=== PATIENT | male | born 1995 | race Caucasian/White ===

== ENCOUNTER 2020-03-07 13:28 | Emergency (ER) | payer OTHER ==
[2020-03-07 14:09] LABS: Absolute Lymphocytes (CBC) 1.6 K/uL (0.7-4.9); Basophils % 1.3 % (0-1.3); Lymphocytes % 27.2 % (15.3-44.8); MPV 8.2 fL (7.6-11.3); RBC Red Blood Cell Count 5.16 M/uL (4.33-5.43)
[2020-03-07] MEDS ORDERED: MECLIZINE HCL 12.5 MG TAB ONE (14:13)
[2020-03-07] MEDS ORDERED: NA CHLORIDE 0.9% 1,000 ML ONE (14:13)
[2020-03-07 14:17] LABS: Protime INR 1.02
--- NOTE | 2020-03-07 14:29 | RAD REPORT ---
EXAM DESCRIPTION: RAD - Chest Single View - 03/07/2020 2:09 pm CLINICAL HISTORY: Dizziness COMPARISON: None TECHNIQUE: AP portable chest image was obtained 03/07/2020 2:09 pm . FINDINGS: Lungs are clear. Heart and vasculature are normal. No measurable pleural effusion and no p neumothorax. No acute bony abnormality seen. No acute aortic findings suspected. IMPRESSION: No acute cardiopulmonary process.
--- NOTE | 2020-03-07 14:31 | RAD REPORT ---
EXAM DESCRIPTION: CT - Head Brain Wo Cont - 03/07/2020 2:18 pm CLINICAL HISTORY: DIZZINESS, near syncope COMPARISON: No comparisons TECHNIQUE: Axial 5 mm thick images of the head were obtained without IV contrast. All CT scans are performed using dose optimization technique as appropriate and may include automated exposure control or mA/KV adjustment according to patient size. FINDINGS: No intracranial hemorrhage, mass, edema or shift of mid-line structures. No acute infarcti on changes seen. No abnormal extra-axial fluid collections. Ventricles are normal. Mastoid air cells are clear. Scattered mucosal thickening seen in the paranasal sinuses. Air-fluid le vels evident in the right maxillary sinus. No acute bony findings. IMPRESSION: No intracranial abnormality identifiable. Paranasal sinus mucosal thickening with additional air-fluid level right maxillary sinus.
[2020-03-07 14:36] LABS: ALT/SGPT 38 U/L (12-78); AST/SGOT 17 U/L (15-37); Albumin 3.6 g/dL (3.4-5.0); Alkaline Phosphatase 80 U/L (45-117); BUN Blood Urea Nitrogen 12 mg/dL (7-18); Bicarbonate 25 mmol/L (21-32); Bilirubin Direct 0.1 mg/dL (0-0.2); Bilirubin Total 0.3 mg/dL (0.2-1.0); Glucose Level 166 mg/dL (74-106); NT PRO-BNP 21 pg/mL (<125); Potassium 3.9 mmol/L (3.5-5.1); Protein, Total 6.8 g/dL (6.4-8.2); Sodium Level 139 mmol/L (136-145); Troponin (Emerg Dept Use Only) < 0.02 ng/mL (0.0-0.045)
--- NOTE | 2020-03-07 15:34 | ER ---
Nurse's Notes [facility] Name: Sylvester Lund Age: 25 yrs Sex: Male : 1995 Arrival Date: 03/07/2020 Time: 13:34 Bed 16 Private MD: Diagnosis: Benign paroxysmal vertigo Presentation: 03/07 13:43 Chief complaint: Patient states: Sudden onset of feeling weird, dizzy, shaky today ll1 while standing at work. Slight nausea at the time. Left work to be checked. Gait steady. No pain or fever. Coronavirus screen: Proceed with normal triage. Patient denies a cough. Patient denies shortness of breath or difficulty breathing. Patient denies measured and/or subjective temperature greater than 100.4F prior to today's visit. Patient denies travel on a cruise ship or to a country the [facility] currently lists as an affected area. Patient denies contact with known and/or suspected case of COVID-19. Ebola Screen: Patient denies travel to an Ebola-affected area in the 21 days before illness onset. Initial Sepsis Screen: Does the patient meet any 2 criteria? No. Patient's initial sepsis screen is negative. Does the patient have a suspected source of infection? No. Patient's initial sepsis screen is negative. Risk Assessment: Do you want to hurt yourself or someone else? Patient reports no desire to harm self or others. Onset of symptoms was March 07, 2020. 13:43 Method Of Arrival: Ambulatory ll1 13:43 Acuity: JOÃO 3 ll1 Historical: - Allergies: 13:45 No Known Allergies; ll1 - PMHx: 13:45 borderline diabetes-no meds; ll1 - PSHx: 13:45 None; ll1 - Social history:: Smoking status: Patient denies any tobacco usage or history of. Patient/guardian denies using alcohol, street drugs, tobacco products. Screenin:05 Abuse screen: Denies threats or abuse. Nutritional screening: No deficits noted. aa5 Tuberculosis screening: No symptoms or risk factors identified. Fall Risk None identified. Assessment: 13:55 General: Appears comfortable, Behavior is calm, cooperative. Pain: Denies pain. Neuro: aa5 Level of Consciousness is awake, alert, obeys commands, Oriented to person, place, time, situation, Parts Data Writer are equal bilaterally Moves all extremities. Speech is normal, Facial symmetry appears normal, Pupils are PERRLA, Reports dizziness. Cardiovascular: Patient's skin is warm and dry. Respiratory: Airway is patent Respiratory effort is even, unlabored, Respiratory pattern is regular, symmetrical. GI: No signs and/or symptoms were reported involving the gastrointestinal system. : No signs and/or symptoms were reported regarding the genitourinary system. EENT: No signs and/or symptoms were reported regarding the EENT system. Derm: Skin is pink, warm \T\ dry. Musculoskeletal: Range of motion: intact in all extremities. 15:45 Reassessment: Patient is alert, oriented x 3, equal unlabored respirations, skin aa5 warm/dry/pink. Patient states feeling better. Patient states symptoms have improved. 16:20 Reassessment: Patient is alert, oriented x 3, equal unlabored respirations, skin aa5 warm/dry/pink. Vital Signs: 13:43 BP 133 / 81; Pulse 80; Resp 17; Temp 98.5; Pulse Ox 96% ; Pain 0/10; ll1 15:30 BP 144 / 80; Pulse 77; Resp 18 S; Pulse Ox 97% on R/A; aa5 16:00 BP 138 / 78; Pulse 74; Resp 16 S; Temp 98.2(TE); Pulse Ox 98% on R/A; aa5 ED Course: 13:34 Patient arrived in ED. bp1 13:37 oJng Brizuela NP is PHCP. pm1 13:37 Darryn Núñez MD is Attending Physician. pm1 13:39 Genoveva Perez, CHLOÉ is Primary Nurse. aa5 13:45 Triage completed. ll1 13:46 Arm band placed on Patient placed in an exam room, on a stretcher. ll1 13:55 Patient has correct armband on for positive identification. Bed in low position. Call aa5 light in reach. Side rails up X2. monitoring and evaluation advisor on. Pulse ox on. NIBP on. 14:00 Initial lab(s) drawn, by me, sent to lab. Inserted saline lock: 20 gauge in left aa5 antecubital area, using aseptic technique. Blood collected. 14:09 XRAY Chest (1 view) In Process Unspecified. EDMS 14:17 CT completed. Patient tolerated procedure well. Patient moved back from CT. bq 14:19 CT Head Brain wo Cont In Process Unspecified. EDMS 15:45 No provider procedures requiring assistance completed. IV discontinued, intact, aa5 bleeding controlled, No redness/swelling at site. Pressure dressing applied. Administered Medications: 14:06 Drug: Meclizine 50 mg Route: PO; aa5 15:45 Follow up: Response: No adverse reaction aa5 14:06 Drug: NS 0.9% 1000 ml Route: IV; Rate: 1000 ml; Site: left antecubital; aa5 15:45 Follow up: IV Status: Completed infusion; IV Intake: 1000ml aa5 15:55 Drug: Rocephin (cefTRIAXone) 1 grams Route: IM; Site: right gluteus; aa5 16:15 Follow up: Response: No adverse reaction aa5 16:16 CANCELLED (Physician Discretion): Rocephin 1 grams IV at calculated rate once; Given aa5 slow IV push per pharmacy instructions Intake: 15:45 IV: 1000ml; Total: 1000ml. aa5 Outcome: 15:33 Discharge ordered by MD. pm1 16:20 Discharged to home ambulatory. aa5 16:20 Condition: improved 16:20 Discharge instructions given to patient, Instructed on discharge instructions, follow up and referral plans. medication usage, Demonstrated understanding of instructions, follow-up care, medications, Prescriptions given X 2. 16:22 Patient left the ED. aa5 Signatures: Dispatcher [employer] EDMS Rossana Cooper Audri RN RN aa5 Jong Brizuela, ROBIN DIAL LATHE OPERATOR pm1 Kia Cazares RN RN ll1 Christina Ramires [facility]
--- NOTE | 2020-03-07 15:34 | EDPHYS ---
Physician Documentation [facility] Name: Sylvester Lund Age: 25 yrs Sex: Male : 1995 Arrival Date: 03/07/2020 Time: 13:34 Bed 16 Private MD: ED Physician Darryn Núñez HPI: 03/07 13:55 This 25 yrs old Male presents to ER via Ambulatory with complaints of pm1 dizziness. 13:55 The patient presents with sense of spinning. Onset: The symptoms/episode began/occurred pm1 today. Context: occurred at work, occurred while the patient was working, just prior to the episode the patient experienced no apparent symptoms. Modifying factors: The symptoms are alleviated by closing eyes, holding head still, the symptoms are aggravated by movement of head, changing position. Associated signs and symptoms: Pertinent negatives: abdominal pain, chest pain, nausea, numbness, palpitations, shortness of breath, tingling, vomiting. Severity of symptoms: in the emergency department the symptoms have improved. The patient has not experienced similar symptoms in the past. The patient has not recently seen a physician. Historical: - Allergies: 13:45 No Known Allergies; ll1 - PMHx: 13:45 borderline diabetes-no meds; ll1 - PSHx: 13:45 None; ll1 - Social history:: Smoking status: Patient denies any tobacco usage or history of. Patient/guardian denies using alcohol, street drugs, tobacco products. ROS: 13:55 Constitutional: Negative for fever, chills, and weight loss, Eyes: Negative for injury, pm1 pain, redness, and discharge, ENT: Negative for injury, pain, and discharge, Neck: Negative for injury, pain, and swelling, Cardiovascular: Negative for chest pain, palpitations, and edema, Respiratory: Negative for shortness of breath, cough, wheezing, and pleuritic chest pain, Abdomen/GI: Negative for abdominal pain, nausea, vomiting, diarrhea, and constipation, Back: Negative for injury and pain, MS/Extremity: Negative for injury and deformity, Skin: Negative for injury, rash, and discoloration. 13:55 Neuro: Positive for dizziness, Negative for headache, numbness, tingling, weakness. Exam: 13:55 Constitutional: This is a well developed, well nourished patient who is awake, alert, pm1 and in no acute distress. Head/Face: Normocephalic, atraumatic. Neck: Trachea midline, no thyromegaly or masses palpated, and no cervical lymphadenopathy. Supple, full range of motion without nuchal rigidity, or vertebral point tenderness. No Meningismus. Chest/axilla: Normal chest wall appearance and motion. Nontender with no deformity. No lesions are appreciated. 13:55 Back: No spinal tenderness. No costovertebral tenderness. Full range of motion. Skin: Warm, dry with normal turgor. Normal color with no rashes, no lesions, and no evidence of cellulitis. MS/ Extremity: Pulses equal, no cyanosis. Neurovascular intact. Full, normal range of motion. 13:55 Cardiovascular: Exam negative for acute changes, Rate: normal, Rhythm: regular, Pulses: no pulse deficits are appreciated. 13:55 Respiratory: Exam negative for acute changes, respiratory distress, shortness of breath. 13:55 Abdomen/GI: Exam negative for acute changes, Inspection: abdomen appears normal, Palpation: abdomen is soft and non-tender, in all quadrants, mass, is not appreciated, rebound tenderness, is not appreciated. 13:55 Neuro: Orientation: is normal, Mentation: is normal, Cranial nerves: Nystagmus present bilaterally with right gomez gaze. Motor: is normal, moves all fours, Sensation: is normal, no obvious gross deficits. Vital Signs: 13:43 BP 133 / 81; Pulse 80; Resp 17; Temp 98.5; Pulse Ox 96% ; Pain 0/10; ll1 15:30 BP 144 / 80; Pulse 77; Resp 18 S; Pulse Ox 97% on R/A; aa5 16:00 BP 138 / 78; Pulse 74; Resp 16 S; Temp 98.2(TE); Pulse Ox 98% on R/A; aa5 MDM: 13:49 Patient medically screened. pm1 13:55 Data reviewed: vital signs. Data interpreted: Pulse oximetry: on room air is 96 %. pm1 Interpretation: normal. 14:48 Counseling: I had a detailed discussion with the patient and/or guardian regarding: the pm1 historical points, exam findings, and any diagnostic results supporting the discharge/admit diagnosis, lab results, radiology results, the need for outpatient follow up, to return to the emergency department if symptoms worsen or persist or if there are any questions or concerns that arise at home. 15:34 ED course: sinusitis present on CT head. Possible infective ENT cause for vertigo. Will pm1 discharge home with abx treatment. 03/07 13:55 Order name: Basic Metabolic Panel; Complete Time: 14:48 pm03/07 13:55 Order name: CBC with Diff; Complete Time: 14:19 pm03/07 13:55 Order name: LFT's; Complete Time: 14:48 pm03/07 13:55 Order name: Magnesium; Complete Time: 14:48 pm03/07 13:55 Order name: NT PRO-BNP; Complete Time: 14:48 pm03/07 13:55 Order name: PT-INR; Complete Time: 14:34 pm03/07 13:55 Order name: CT Head Brain wo Cont; Complete Time: 14:34 pm1 03/07 13:55 Order name: Troponin (emerg Dept Use Only); Complete Time: 14:48 pm03/07 13:55 Order name: XRAY Chest (1 view); Complete Time: 14:34 pm03/07 14:03 Order name: Glucose, Ancillary Testing; Complete Time: 14:08 EDMS 03/07 13:55 Order name: EKG; Complete Time: 13:56 pm03/07 13:55 Order name: Cardiac monitoring; Complete Time: 14:04 pm03/07 13:55 Order name: EKG - Nurse/Tech; Complete Time: 14:27 pm03/07 13:55 Order name: IV Saline Lock; Complete Time: 14:04 pm03/07 13:55 Order name: Labs collected and sent; Complete Time: 14:04 pm03/07 13:55 Order name: O2 Per Protocol; Complete Time: 14:04 pm03/07 13:55 Order name: O2 Sat Monitoring; Complete Time: 14:04 pm1 Administered Medications: 14:06 Drug: Meclizine 50 mg Route: PO; 15:45 Follow up: Response: No adverse reaction aa5 14:06 Drug: NS 0.9% 1000 ml Route: IV; Rate: 1000 ml; Site: left antecubital; 15:45 Follow up: IV Status: Completed infusion; IV Intake: 1000ml aa5 15:55 Drug: Rocephin (cefTRIAXone) 1 grams Route: IM; Site: right gluteus; aa5 16:15 Follow up: Response: No adverse reaction aa5 16:16 CANCELLED (Physician Discretion): Rocephin 1 grams IV at calculated rate once; Given aa5 slow IV push per pharmacy instructions Disposition: 19:19 Co-signature as Attending Physician, Darryn Núñez MD. [facility] Disposition: 03/07/20 15:33 Discharged to Home. Impression: Benign paroxysmal vertigo. - Condition is Stable. - Discharge Instructions: Benign Positional Vertigo, Sinusitis, Adult. - Prescriptions for Meclizine 25 mg Oral Tablet - take 1 tablet by ORAL route every 8 hours As needed; 30 tablet. Amoxicillin 500 mg Oral Capsule - take 1 capsule by ORAL route every 8 hours for 10 days; 30 tablet. - Work release form, Medication Reconciliation Form, Thank You Letter, Antibiotic Education, Prescription Opioid Use form. - Follow up: Emergency Department; When: As needed; Reason: Worsening of condition. Follow up: Private Physician; When: 2 - 3 days; Reason: Recheck today's complaints, Continuance of care, Re-evaluation by your physician. - Problem is new. - Symptoms have improved. Signatures: Dispatcher [employer] EDMS Genoveva Perez RN RN aa5 Jong Brizuela NP COIN ROLLING MACHINE OPERATOR pm1 Kia Cazares RN RN 1 aDrryn Núñez MD MD [facility] Corrections: (The following items were deleted from the chart) 16:16 14:35 Rocephin 1 grams IV at calculated rate once; Given slow IV push per pharmacy aa5 instructions ordered. pm1 16:16 16:16 Rocephin 1 grams IV at calculated rate once; Given slow IV push per pharmacy aa5 instructions ordered. aa5 16:22 15:33 03/07/2020 15:33 Discharged to Home. Impression: Benign paroxysmal vertigo. aa5 Condition is Stable. Forms are Medication Reconciliation Form, Thank You Letter, Antibiotic Education, Prescription Opioid Use. Follow up: Emergency Department; When: As needed; Reason: Worsening of condition. Follow up: Private Physician; When: 2 - 3 days; Reason: Recheck today's complaints, Continuance of care, Re-evaluation by your physician. Problem is new. Symptoms have improved. pm1
[2020-03-07] MEDS ORDERED: CEFTRIAXONE/SWI 1gm 0 GM/0 ML SYR ONE (15:37)
[2020-03-07] MEDS ORDERED: LIDOCAINE 1% MPF 2 ML AMPULE ONE (16:01)
[2020-03-07] MEDS ORDERED: CEFTRIAXONE 1000 MG/VIAL ONE (16:02)
[2020-03-07 16:30] VITALS: TEMP 98.5
[2020-03-07 16:31] VITALS: BP 144/80; O2SAT 97
--- NOTE | 2020-03-08 08:54 | EKG ---
Test Date: 2020-03-07 Test Time: 14:12:47 Chamber Walker: CONRAD MEASUREMENT RESULTS: Intervals: Rate: 78 PA: 174 QRSD: 96 QT: 360 QTc: 410 Hawkins: P: 52 PA: 174 QRS: 33 T: 56 INTERPRETIVE STATEMENTS: Normal sinus rhythm Nonspecific ST abnormality Abnormal ECG No previous ECG available for comparison Electronically Signed On 03-08-20 08:52:25 CDT by Chadwick Hines
== END 2020-03-07 16:22 | disposition home or self-care (01) ==
LOC: ER 13:28
DX: H81.10 Benign paroxysmal vertigo, unspecified ear (principal)
CPT/HCPCS: 96361; 93005; 85025; 80048; 36415; 83735; 85610; 82947; 80076; 84484; 83880; 70450; 71045; 96360; 96372; 99285; J8597; J2001; J7030; J0696

== ENCOUNTER 2024-09-15 18:49 | Emergency (ER) | payer BC ==
--- NOTE | 2024-09-15 19:32 | ER ---
Nurse's Notes [facility] Name: Sylvester Ludn Age: 29 yrs Sex: Male : 1995 Arrival Date: 09/15/2024 Time: 18:49 Bed Waiting Private MD: Diagnosis: ED Course: 09/15 18:55 Patient arrived in ED. mg5 18:56 [facility] sb4 18:56 Mickey Eubanks MD is Attending Physician. sb4 19:19 Patient's name was called from ER lobby. No response. cm10 19:31 Patient's name was called from ER lobby. Unable to locate patient. Will disposition as cm10 left without being seen by a provider. Administered Medications: No medications were administered Outcome: 19:31 Patient left the ED. cm10 Signatures: Carie Cox PA-C PA-C sb4 Kellen Mcelroy RN RN cm10 Kristi Sibley mg5
== END 2024-09-15 19:31 | disposition left against medical advice (07) ==
LOC: ER 18:49
DX: Z02.9 Encounter for administrative examinations, unspecified (principal)